=== PATIENT | female | born 1940 | race Caucasian/White ===

== ENCOUNTER → 2016-09-12 | Outpatient (CLI) | payer MEDICARE, OTHER ==
[~2016-09-12] MED LIST: ASPIRIN (CHILDR81 MG PO; CLARITIN10 MG PO; DUREZOL5 ML OPHTH; FLONASE 50 MCG/16 GM NOSE; GAVISCON EXTRA355 ML PO; LIPITOR80 MG PO; MYLICON OR GAS-80 MG PO; PROLENSA3 ML OPHTH; PROTONIX40 MG PO; REFRESH PLUS1 EACH OPHTH; TYLENOL EXTRA500 MG PO; VIGAMOX3 ML OPHTH; VITAMIN D1000 UNI1 PO
== END | disposition disaster alternative care site (69) ==
LOC: GBCOE 11:05
DX: Z12.31 Encounter for screening mammogram for malignant neoplasm of breast (principal)
CPT/HCPCS: G0202

== ENCOUNTER 2016-10-01 10:23 | Emergency (ER) | payer MEDICARE, OTHER ==
--- NOTE | ~2016-10-01 | ER ---
PATIENT'S NAME: ANNIKA YOUSIF [facility] AGE: 76 Y [address] ROOM: [place] [address] LOCATION: [facility] ADMIT DATE: 10/01/2016 ER/Outpatient Report DISCHARGE DATE: 10/01/2016 FAMILY PHYSICIAN: Zarina Guerrier MD ATTENDING PHYSICIAN: Keegan Dumas CHIEF COMPLAINT: Syncope and right shoulder pain. HISTORY OF PRESENT ILLNESS: Ms. Yousif arrives by ambulance from [place] for evaluation of injuries after a fall. Ms. Yousif states that she blacked out this morning, fell over, struck her head and injured her right shoulder. The patient has no specific other complaints. She states she has been falling a lot recently and has been having issues with urinary infections. She was in the hospital earlier this year with a stroke and intracranial hemorrhage. Since that time, she has had vision issues and balance issues. There is nothing new along those lines today. PAST MEDICAL HISTORY: Documented on the record and reviewed by me. SOCIAL HISTORY: Documented on the record and reviewed by me. MEDICATIONS: Documented on the record and reviewed by me. ALLERGIES: DOCUMENTED ON THE RECORD AND REVIEWED BY ME. REVIEW OF SYSTEMS: All systems reviewed and negative except as noted in the HPI. PHYSICAL EXAMINATION: VITAL SIGNS: Vital signs were obtained. Blood pressure 165/70, pulse 56, respiratory rate is 20, temperature 95.3, SpO2 is normal. GENERAL: Age appropriate female, sitting upright on the exam table with no collar and a makeshift sling to the right arm. Obvious outward signs of distant pain. No distress. NEUROLOGIC: The patient is awake and alert. GCS is 15. No focal deficits. No asymmetry, other than is limited by pain. HEENT: Normocephalic, atraumatic. Eyes are PERRL. Oropharynx is clear. NECK: Supple. Trachea is midline. CHEST: Nontender to palpation. The right clavicle is tender at old fracture PATIENT'S NAME: ANNIKA YOUSIF [facility] AGE: 76 Y [address] ROOM: [place], [place] [address] LOCATION: [facility] ADMIT DATE: 10/01/2016 ER/Outpatient Report DISCHARGE DATE: 10/01/2016 FAMILY PHYSICIAN: Zarina Guerrier MD ATTENDING PHYSICIAN: Keegan Dumas site. HEART: Regular rate and rhythm with no murmurs. LUNGS: Clear to auscultation bilateral. No rhonchi, wheezes, or rales. ABDOMEN: Soft, nontender, and nondistended. No rebound or guarding. BACK: Normal to inspection. There is diffuse spinal tenderness of the C-spine, but not of the T or L-spine. EXTREMITIES: The extremities were examined and there is some tenderness in the right shoulder. Poorly localized. Range of motion was limited secondary to discomfort. SKIN: Clean, dry and intact grossly. LABORATORY DATA AND X-RAYS: CT of the head and C-spine were unremarkable per Radiology. Plain films of the right shoulder did not reveal any rib fractures, new clavicle fractures or pathology of the glenohumeral joint or the humerus. EKG was obtained, sinus rhythm, rate of 52, but otherwise normal intervals and axis. No signs of acute ischemia. CMS with no appreciable abnormalities. CBC with no appreciable abnormalities. Urinalysis is nitrite positive with 150 of blood. Culture is pending. EMERGENCY DEPARTMENT COURSE: The patient was seen and evaluated as above. Based on injuries, CT of the head and neck were obtained and plain films of the right shoulder. No acute pathology on those films. Workup was entertained regarding her symptoms and fall, negative from a cardiac standpoint. She does have urinary tract infection. Lisa was called to her local pharmacy at her request based on prior culture data. She was placed in a [facility] collar as she had persistent pain after the CT scan. We did place her in an emergency collar initially, but attempts at clearance were unsuccessful. I discussed the case of the neck with Dr. Matamoros. He will see her in 7-10 days. The patient was given tramadol for pain here, which helped her significantly. She was able to ambulate to the restroom without any difficulty. She was discharged to the care of her family in good condition. All questions were answered. The patient was discharged. MD TRENTON BRADY/desmond /[id number] d: 10/02/1629 t: 10/11/16 0622, OUTPATIENT REPORT
[2016-10-01 10:47] LABS: BASOPHIL % 0.7 %; EOSINOPHIL # 0.1 K/uL (0.0-0.5); EOSINOPHIL % 2.6 %; HEMATOCRIT 37.4 % (33.0-46.0); HEMOGLOBIN 12.5 g/dL (10.0-15.0); IMMATURE GRANULOCYTE % 0.4 %; LYMPHOCYTE # 2.1 K/uL (0.8-4.0); LYMPHOCYTE % 39.3 %; MCH 30.5 pg (27.0-34.0); MCHC 33.4 gm/dL (32.0-36.5); MCV 91.2 fl (83.0-98.0); MONOCYTE # 0.3 K/uL (0.0-1.0); MONOCYTE % 6.4 %; MPV 8.8 fl (9.4-12.4); NEUTROPHIL # (ANC) 2.7 K/uL (1.8-7.8); NEUTROPHIL % 50.6 %; NRBC % 0 /100WBC (0-0.00); PLATELET COUNT 259 K/uL (150-450); RDW-CV 12.7 % (11.9-14.6); WBC 5.3 K/uL (4.0-11.0)
[2016-10-01 11:04] LABS: ALBUMIN 3.7 gm/dL (3.5-5.0); ANION GAP 11.5 (10.0-19.0); CALCIUM 8.9 mg/dL (8.5-10.5); CREATININE 0.8 mg/dL (0.5-1.1); POTASSIUM 3.5 mMol/L (3.7-5.1); TOTAL BILIRUBIN 0.6 mg/dL (0.0-1.5); TOTAL PROTEIN 7.5 g/dL (6.0-8.4)
[2016-10-01 12:11] LABS: BILIRUBIN URINE NEGATIVE (NEGATIVE); BLOOD URINE 150 /UL (NEGATIVE); COLOR URINE YELLOW (YELLOW); GLUCOSE URINE NEGATIVE (NEGATIVE); KETONE URINE NEGATIVE (NEGATIVE); LEUKOCYTES URINE 25 /UL (NEGATIVE); NITRITE URINE POSITIVE (NEGATIVE); PROTEIN URINE NEGATIVE (NEGATIVE); SPEC GRAVITY URINE 1.015 (1.003-1.035); TURBIDITY URINE 2+ (CLEAR); UROBILINOGEN URINE NORMAL (NORMAL)
[2016-10-01 12:25] LABS: AMORPHOUS URINE 1+ (NEGATIVE); BACTERIA URINE MANY (NEGATIVE); EPITHELIAL URINE 0-2 #/HPF (NEGATIVE)
== END 2016-10-01 12:20 | disposition disaster alternative care site (69) ==
LOC: GACC 10:23
PROVIDERS: Emergency Medicine
DX: M25.511 Pain in right shoulder (principal); N39.0 Urinary tract infection, site not specified; Z88.2 Allergy status to sulfonamides; Z79.899 Other long term (current) drug therapy
CPT/HCPCS: J2405; J3010